=== PATIENT | female | born 2000 | race Two or more races ===

== ENCOUNTER 2022-08-09 00:41 | Inpatient (IN) ==
[2022-08-09] MEDS ORDERED: SODIUM CHLORIDE 0.9% 1000ML 1,000 ML IV STA (01:00)
[2022-08-09] MEDS ORDERED: FAMOTIDINE 20MG IV PUSH 20 MG/5 ML SYR IV STA (01:00)
[2022-08-09] MEDS ORDERED: ONDANSETRON INJ 2 MG/ML 2 ML VIAL IV STA (01:00)
--- NOTE | 2022-08-09 01:48 | Emergency Department Note ---
History of Present Illness General Chief complaint: Abdominal Pain Stated complaint: SHARP PAIN IN RT ABD AREA Time Seen by Provider: 08/09/22 00:52 History of Present Illness Maximum Pain Intensity: 7 This 21-year-old female presents to the ER complaining of right upper quadrant pain after eating tonight. Patient denies chest pain, dyspnea, fevers, vomiting, diarrhea, flulike illness. No injury to the area. No prior abdominal surgeries. Past Med/Surg History Social History Smoking Status: Current every day smoker Feels Safe at Home: Yes Review of Systems A total of 10 systems reviewed and were otherwise negative Physical Exam Vital Signs Vital Signs - 24 hr 08/09/22 00:49 08/09/22 01:15 08/09/22 00:42 Temperature 36.6 C Temperature Source Temporal Artery Scan Pulse Rate 70 Pulse Rate from SpO2 Sensor Respiratory Rate 16 Respiratory Effort / Characteristics Non-Labored Non-Labored Spontaneous Respiratory Depth Normal Normal Blood Pressure 123/92 Blood Pressure Mean 102 Pulse Oximetry 99 97 Oxygen Delivery Method Room Air Room Air Sepsis Recent Fever Within 48 Hours No Sepsis New/Unexplained Change in Mental Status No Sepsis Action Taken by Nursing No Action Required 08/09/22 01:31 08/09/22 02:50 08/09/22 01:30 Temperature Temperature Source Pulse Rate 61 70 53 L Pulse Rate from SpO2 Sensor 59 L 69 Respiratory Rate 24 16 Respiratory Effort / Characteristics Respiratory Depth Blood Pressure 102/74 Blood Pressure Mean 83 Pulse Oximetry 96 97 Oxygen Delivery Method Sepsis Recent Fever Within 48 Hours Sepsis New/Unexplained Change in Mental Status Sepsis Action Taken by Nursing VITALS: Vitals are noted on the nurse's note and reviewed by myself. Vital signs stable. GENERAL: Pleasant patient, in no acute distress, nondiaphoretic, well-developed well-nourished. SKIN: The skin was without rashes, erythema, edema, or bruising. There is no tenting of the skin. Capillary reflex less than 2 seconds. HEAD: Normocephalic atraumatic. EARS: External auditory canals clear, EYES: Pupils equal round and reactive to light and accommodation. Conjunctivae without injection, sclerae without icterus. Extraocular movements intact. NOSE: Patent, turbinates without inflammation or discharge. MOUTH: Mucous membranes moist. Pharynx without erythema or exudate. Uvula midline. Airway patent. Tongue does not deviate. NECK: Supple without nuchal rigidity. No lymphadenopathy. No thyromegaly. Cervical spine is nontender. No JVD. HEART: Regular rate and rhythm LUNGS: Clear to auscultation bilaterally without wheezes, rales or rhonchi. No retractions or accessory muscle use. ABDOMEN: Positive bowel sounds x 4. Normal tympanic percussion. Soft, tender to palpation right upper quadrant, without masses or organomegaly. No guarding or rebound tenderness. No CVA tenderness MUSCULOSKELETAL: No muscle atrophy, erythema, or edema noted. NEURO: Patient was alert and oriented to person place and time. Normal sensation to light and sharp touch. No focal neurological deficits. Course Administered Medications Discontinued Medications Sodium Chloride (Nss 1000ml) 1,000 mls @ 999 mls/hr IV .Q1H1M STA Stop: 08/09/22 02:00 Last Infusion: 08/09/22 02:33 Dose: 0 mls/hr Documented By: Admin: 08/09/22 01:34 Dose: 999 mls/hr Documented By: FRANCIS Famotidine (Pepcid 20mg Iv Push) 20 mg in 5 mls @ 2.5 mls/min IV NOW STA Stop: 08/09/22 01:01 Last Admin: 08/09/22 01:34 Dose: 2.5 mls/min Documented By: FRANCIS Piperacillin Sod/Tazobactam Sod (Zosyn) 4.5 gm in 120 mls @ 240 mls/hr IV NOW ONE Stop: 08/09/22 02:50 Last Infusion: 08/09/22 03:18 Dose: 0 mls/hr Documented By: Admin: 08/09/22 02:44 Dose: 240 mls/hr Documented By: FRANCIS Ondansetron HCl (Ondansetron Inj 2 Mg/Ml 2 Ml Vial) 4 mg IV NOW STA Stop: 08/09/22 01:01 Last Admin: 08/09/22 01:34 Dose: 4 mg Documented By: FRANCIS Medical Decision Making Medical Records Attestation: I reviewed the patient's medical records. Home Medications Current Medication List: was personally reviewed by me Laboratory Data Attestation: I reviewed the patient's lab results. 08/09/22 01:19 08/09/22 01:19 Lab Results 08/09/22 08/09/22 08/09/22 Range/Units 01:19 01: 01:19 WBC 4.90 (4.8-10.8) K/ul RBC 4.85 (4.20-5.40) M/uL Hgb 14.0 (12.0-16.0) g/dl Hct 41.0 (37.0-47.0) % MCV 84.5 (80.0-100.0) fL MCH 28.9 (25.0-34.0) pg MCHC 34.1 (32.0-36.0) g/dL RDW Std Deviation 39.9 (36.4-46.3) fL RDW Coeff of Carmen 13.0 (11.5-14.5) % Plt Count 277 (130-400) K/uL MPV 9.8 (9.4-12.4) fL Immature Gran % (Auto) 0.0 % Neut % (Auto) 50.6 % Lymph % (Auto) 37.3 % Steele % (Auto) 9.0 % Eos % (Auto) 2.9 % Baso % (Auto) 0.2 % Neut # (Auto) 2.48 (1.40-6.50) K/uL Lymph # (Auto) 1.83 (1.2-3.4) K/uL Steele # (Auto) 0.44 (0.11-0.59) K/uL Eos # (Auto) 0.14 (0-0.50) K/uL Baso # (Auto) 0.01 (0-0.2) K/uL Immature Gran # (Auto) 0.00 L (0.01-0.20) K/uL PT (9.0-12.0) Seconds INR (0.9-1.1) Sodium 141 (136-145) mmol/L Potassium 3.5 (3.5-5.1) mmol/L Chloride 103 (98-107) mmol/L Carbon Dioxide 30 (21-32) mmol/L Anion Gap 8 (3-11) BUN 12 (6-23) mg/dl Creatinine 0.82 (0.6-1.2) mg/dl Est Cr Clr Drug Dosing 98.7 ml/min Est GFR ( Amer) 118.6 ml/min Est GFR (Non-Af Amer) 102.3 ml/min BUN/Creatinine Ratio 14.6 (10-20) Glucose 103 H (70-99(Fasting)) mg/dl Calcium 9.3 (8.5-10.1) mg/dl Total Bilirubin 1.7 H (0.2-1.0) mg/dl AST 683 H (13-39) U/L ALT 397 H (7-52) U/L Alkaline Phosphatase 109 H (34-104) U/L Total Protein 7.3 (6.0-8.3) gm/dl Albumin 4.3 (3.4-5.0) gm/dl Globulin 3.0 (2.5-4.0) gm/dl Albumin/Globulin Ratio 1.4 (0.9-2) Lipase 25 (11-82) U/L HCG, Qual Negative (Negative) SARS-CoV-2, RNA, NAAT (NEGATIVE) 08/09/22 08/09/22 Range/Units 01: 03:20 WBC (4.8-10.8) K/ul RBC (4.20-5.40) M/uL Hgb (12.0-16.0) g/dl Hct (37.0-47.0) % MCV (80.0-100.0) fL MCH (25.0-34.0) pg MCHC (32.0-36.0) g/dL RDW Std Deviation (36.4-46.3) fL RDW Coeff of Carmen (11.5-14.5) % Plt Count (130-400) K/uL MPV (9.4-12.4) fL Immature Gran % (Auto) % Neut % (Auto) % Lymph % (Auto) % Steele % (Auto) % Eos % (Auto) % Baso % (Auto) % Neut # (Auto) (1.40-6.50) K/uL Lymph # (Auto) (1.2-3.4) K/uL Steele # (Auto) (0.11-0.59) K/uL Eos # (Auto) (0-0.50) K/uL Baso # (Auto) (0-0.2) K/uL Immature Gran # (Auto) (0.01-0.20) K/uL PT 11.8 (9.0-12.0) Seconds INR 1.1 (0.9-1.1) Sodium (136-145) mmol/L Potassium (3.5-5.1) mmol/L Chloride (98-107) mmol/L Carbon Dioxide (21-32) mmol/L Anion Gap (3-11) BUN (6-23) mg/dl Creatinine (0.6-1.2) mg/dl Est Cr Clr Drug Dosing ml/min Est GFR ( Amer) ml/min Est GFR (Non-Af Amer) ml/min BUN/Creatinine Ratio (10-20) Glucose (70-99(Fasting)) mg/dl Calcium (8.5-10.1) mg/dl Total Bilirubin (0.2-1.0) mg/dl AST (13-39) U/L ALT (7-52) U/L Alkaline Phosphatase (34-104) U/L Total Protein (6.0-8.3) gm/dl Albumin (3.4-5.0) gm/dl Globulin (2.5-4.0) gm/dl Albumin/Globulin Ratio (0.9-2) Lipase (11-82) U/L HCG, Qual (Negative) SARS-CoV-2, RNA, NAAT NEGATIVE (NEGATIVE) Imaging Data Attestation: I personally reviewed and interpreted this imaging study as follows: Radiologist's Impression: Gallbladder Ultrasound 08/09/22 01:00 Exam(s): US GALLBLADDER EXAM: US Abdomen Limited, Gallbladder CLINICAL HISTORY: Reason for exam: ruq pain. TECHNIQUE: Real-time ultrasound of the right upper quadrant with image documentation. COMPARISON: No relevant prior studies available. FINDINGS: Gallbladder: There is cholelithiasis. Common bile duct: The common bile duct measures 0.2 cm. No stones. No dilation. Pancreas: Unremarkable as visualized. IMPRESSION: Cholelithiasis without secondary signs of acute cholecystitis. No evidence for choledocholithiasis. Electronically signed by: Marques Webber MD 08/09/22 02:32 AM [facility] Narrative Prior records/ancillary studies reviewed. Triage Nursing notes reviewed. Additional history obtained from nursing. The patient's history was concerning for abdominal pain. Differential diagnosis: Etiologies such as appendicitis, diverticulitis, PUD, biliary pathology, UTI, pancreatitis, obstruction, mesenteric ischemia, aortic pathology, infections, inflammatory bowel disease, renal colic, as well as others were entertained. Physical examination findings: As above. ER treatment provided: An order was placed for continuous cardiac monitoring. The monitor shows a rate of 60-100 with a sinus rhythm per my Independent interpretation. IV fluids Pepcid and Zofran were ordered, Zosyn was ordered On reassessment the patient felt better. Diagnostics interpreted by me: The labs Independently Interpreted by myself revealed elevated LFTs and T. bili Imaging studies: CT scan was reviewed and independent interpreted by myself and read by radiology. CT is concerning for cholelithiasis Consultation: A consultation was placed with the hospitalist. The case was discussed and diagnostics were reviewed. The patient was evaluated in the ER for further treatment. Exam and history seem consistent with cholelithiasis with concerns for Choledocholithiasis. Patient was started on antibiotics for possible developing cholangitis. Labs and diagnostics were independent interpreted by myself. Medicine was consulted and the case was discussed. Patient will be admitted to the medical team. Patient is agreeable. By the evaluation outlined above emergent etiologies such as appendicitis, diverticulitis, PUD, UTI, pancreatiti s, obstruction, mesenteric ischemia, aortic pathology, inflammatory bowel disease, renal colic, as well as others were deemed relatively unlikely. The pt informed about the findings as listed above. All questions were answered and pleased with the treatment. The chart was completed utilizing [employer] Speech voice recognition software. Grammatical errors, random word insertions, pronoun errors, and incomplete sentences are an occassional consequence of this system due to software limita tions, ambient noise, and hardware issues. Any formal questions or concerns about the content, text, or information contained within the body of this dictation should be directly addressed to the physician oral surgery assistant for clarification. Impression & Plan Abdominal pain, acute, Cholelithiasis, Elevated LFTs Discharge Plan Visit Data Chief Complaint: Abdominal Pain Stated Complaint: SHARP PAIN IN RT ABD AREA ED Provider: Amparo Smith ED Midlevel Provider: Becca Webber Discharge Problem: Abdominal pain, acute, Cholelithiasis, Elevated LFTs Patient Disposition: Admitted As Inpatient Condition: Good Forms Stand Alone Forms: [facility] Referrals Referrals: [facility] [Primary Care Provider] -
[2022-08-09 01:59] LABS: Basophils # (auto) 0.01 K/uL (0-0.2); Basophils % (auto) 0.2 %; Eosinophils # (auto) 0.14 K/uL (0-0.50); Eosinophils % (auto) 2.9 %; Lymphocytes # (auto) 1.83 K/uL (1.2-3.4); Lymphocytes % (auto) 37.3 %; Mean Corpuscular Hemoglobin 28.9 pg (25.0-34.0); Mean Corpuscular Hgb Conc 34.1 g/dL (32.0-36.0); Mean Corpuscular Volume 84.5 fL (80.0-100.0); Mean Platelet Volume 9.8 fL (9.4-12.4); Monocytes # (auto) 0.44 K/uL (0.11-0.59); Neutrophils # (auto) 2.48 K/uL (1.40-6.50); Neutrophils % (auto) 50.6 %; Platelet Count 277 K/uL (130-400); RDW Standard Deviation 39.9 fL (36.4-46.3); Red Blood Count 4.85 M/uL (4.20-5.40)
[2022-08-09 02:16] LABS: Albumin Globulin Ratio 1.4 (0.9-2); Albumin Level 4.3 gm/dl (3.4-5.0); BUN Creatinine Ratio 14.6 (10-20); Bilirubin,Total 1.7 mg/dl (0.2-1.0); Calcium 9.3 mg/dl (8.5-10.1); Creatinine Clr Calc Pharmacy 98.7 ml/min; Est GFR (African American) 118.6 ml/min; Est GFR (Non-African American) 102.3 ml/min; Potassium 3.5 mmol/L (3.5-5.1); Pregnancy Test, Serum Negative (Negative); Total Protein 7.3 gm/dl (6.0-8.3)
[2022-08-09] MEDS ORDERED: PIPERACILLIN/TAZOBACTAM 4.5 GM/120 ML BAG IV ONE (02:21)
--- NOTE | 2022-08-09 02:33 | Ultrasound Report ---
Exam(s): US GALLBLADDER EXAM: US Abdomen Limited, Gallbladder CLINICAL HISTORY: Reason for exam: ruq pain. TECHNIQUE: Real-time ultrasound of the right upper quadrant with image documentation. COMPARISON: No relevant prior studies available. FINDINGS: Gallbladder: There is cholelithiasis. Common bile duct: The common bile duct measures 0.2 cm. No stones. No dilation. Pancreas: Unremarkable as visualized. IMPRESSION: Cholelithiasis without secondary signs of acute cholecystitis. No evidence for choledocholithiasis. Electronically signed by: Marques Webber MD 08/09/22 02:32 AM
--- NOTE | 2022-08-09 04:24 | History & Physical Report ---
Date of Service August 09, 2022 Assessment & Plan (1) RUQ pain: Plan: Patient is a 21-year-old female with no significant past medical history presents to the ED for the complaint of right upper quadrant pain. Her imaging is consistent with cholelithiasis without evidence of cholecystitis, choledocholithiasis, or cholangitis. She is hemodynamically stable. -Admit to [facility] -N.p.o. with possibility of procedure -Consult general surgery to evaluate for cholecystectomy, appreciate recommendations -Without evidence of cholangitis, no indication for antibiotics at this time -Tylenol and morphine for scaled pain -Lactated Ringer's at 100 cc/h while n.p.o. -Hepatitis panel ordered in the morning (2) Gallstones: Plan: See plan above Plan Disposition: Admit to [facility] with surgical consultation Diet: N.p.o. with lactated Ringer's for maintenance fluid DVT prophylaxis: Low risk CODE STATUS: Full code History of Present Illness Chief Complaint: RUQ Pain Primary Care Provider: [facility] Patient is a 21-year-old female with no significant past medical history presents to the ED for the complaint of right upper quadrant pain. She reports that this has been going on for the past 3 to 4 days and has progressively been getting worse to today bringing her pain up to a 7 out of 10 after eating dinner tonight. She has never had anything like this happen to her before. She is not having any nausea or vomiting however, she does note that she is having some decreased appetite. She has not had a good bowel movement in 3 to 4 days since the symptoms have started. Denies any alcohol consumption. Of note she did travel to [facility] in April. She is not a [place] born citizen so unsure of hepatitis B vaccination status. Reports that she is not sexually active. Otherwise denies shortness of breath, headache, vomiting, chest pain, or yellowing of skin. No previous abdominal surgeries. No other complaints this time. ED course:Patient was brought back and had lab work drawn which had shown elevated total bilirubin at 1.7, elevated AST, ALT, and ALT at 683, 397, and 109 respectively. She had a right upper quadrant ultrasound which did reveal gallstones without acute cholecystitis or choledocholithiasis. Common bile duct does not show any stones or dilation. Hospitalist service was then consulted for admission. Allergies Allergy/AdvReac Type Severity Reaction Status Date / Time No Known Allergies Allergy Unverified 08/09/22 04:59 Home Medications Medication Instructions Recorded Confirmed Type No Known Home Medications 08/09/22 08/09/22 History Past Med/Surg History Social History Smoking Status: Current some day smoker Second Hand Exposure: Yes; Do You Dip or Chew Tobacco: No; Tobacco Cessation Education Requested by Patient: No Hx Alcohol Use: Yes Alcohol type: hard liquor Hx Substance Use: No Preferred Language: Uzbek Communication Ability: Effective Dairy Nutrition Consultant Required: No Beliefs That Will Affect Care: None Current Living Situation: Other Current Living Situation Comment: roommate Other Information That Helps Us Care for You: No Feels Safe at Home: Yes Safety Concerns: Feels Safe At This Time Assistive Devices: Glasses Review of Systems Review of Systems: All systems reviewed & are unremarkable except as noted in HPI & below Physical Exam Constitutional: WD/WN, vitals as above Eyes: + anicteric sclerae Neck: trachea midline, no thyromegaly Respiratory: normal respiratory effort, lungs clear to auscultation Cardiovascular: RRR, no murmur, no edema Gastrointestinal (Abdomen): Inspection/Auscultation: abdomen normal to inspection and normal bowel sounds Percussion/Palpation: + abdomen tender (RUQ, negative skinner sign), abdomen soft and normal to percussion Musculoskeletal: Head/Neck/Chest: normocephalic and head atraumatic Skin: no rashes, warm and dry Neurologic: moves all extremities Psychiatric: A+Ox3, euthymic affect Results & Data Results & Data Vital Signs (Past 12 Hours) Vital Signs Temp Pulse Resp BP Pulse Ox O2 Del Method 08/09/22 01:30 53 L 08/09/22 02:50 70 16 102/74 97 08/09/22 01:31 61 24 96 08/09/22 01:15 97 Room Air 08/09/22 00:49 36.6 C 70 16 123/92 99 Room Air Supervising Physician Co-Signing Physician Notes Attending addendum: I have physically seen this patient, have supervised the medical residents activities, and agree with the H&P unless as otherwise noted. Assessment and Plan: Abnormal liver test with abdominal pain and cholelithiasis- Presumptive acute cholecystitis N.p.o. IV antibiotics IV fluids LR at 100 mils per hour General surgery consult Remaining orders and notations as noted
[2022-08-09 04:42] LABS: INR 1.1 (0.9-1.1); Prothrombin Time 11.8 Seconds (9.0-12.0)
[2022-08-09] MEDS ORDERED: Patient's ALLERGY Info needs ENTERED STA (04:51)
[2022-08-09] MEDS ORDERED: MoRPHine SULFATE 2 MG/ML CARP IV PRN (05:55)
[2022-08-09] MEDS ORDERED: ONDANSETRON INJ 2 MG/ML 2 ML VIAL IV PRN ×2 (05:55→15:55)
[2022-08-09] MEDS: LACTATED RINGER'S 1,000 ML IV SCH ×2 (06:19→19:55)
--- NOTE | 2022-08-09 07:34 | Hospitalist Progress Note ---
Date of Service August 09, 2022 Assessment & Plan (1) RUQ pain: Plan: Patient is a 21-year-old female with no significant past medical history presents to the ED for the complaint of right upper quadrant pain. - imaging is consistent with cholelithiasis without evidence of cholecystitis, choledocholithiasis, or cholangitis - -N.p.o., plan for cholecystectomy per surgery - LFTS with more of a hepatocellular patten - salicylate, acetaminophen levels wnl - liver normal on US per radiology - hepatitis panel pending - UDS pending -Tylenol and morphine for scaled pain -Lactated Ringer's at 100 cc/h while n.p.o. (2) Cholelithiasis: (3) Elevated LFTs: Plan Diet: N.p.o. with lactated Ringer's for maintenance fluid DVT prophylaxis: Low risk CODE STATUS: Full code Admission and Anticipated Discharge Date Admission Date: August 09, 2022 Supervising Physician Co-Signing Physician Notes I personally examined the patient and verified all mcghee points of history and exam, discussed case, and agree with decision making with Dr Montoya. Feeling okay postop. Sore but tolerable. Does have a little bit of radiation to her neck. Notes that she does not need anything different as far as medications. Appreciate surgical input. Vitals noted, in general she is awake and alert pleasant no distress. HEENT normocephalic atraumatic mucous membranes moist. Breathing unlabored no accessory muscle use good effort. Skin shows no rashes no pallor or icterus. Neuro without focal deficits. Labs and diagnostics reviewed Transaminitissurgical eval yielded findings consistent with cholecystitisshe is now postop. Given that she had fairly marked hepatocellular picturefurther lab work-up has been sent. Acetaminophen/salicylates reassuring, urine drug screen reassuring for anything that would be hepatotoxic. Viral hepatitis serologies are sent and pending. At the same time, as we trend her LFTs if they rapidly decline postcholecystectomy, certainly there are times where cholecystitis causes more of a hepatocellular picture on lab work. Otherwise as above. Subjective Pain improved this morning. Does note she has some nausea, denies emesis. Last bowel movement 2-3 days ago. Review of Systems Review of Systems: As per above Physical Exam Physical Exam: Constitutional: well-appearing, no acute distress HEENT: NCAT, no conjunctival injection CV: regular rhythm, no murmur appreciated, extremities well-perfused, no LE edema Resp: CTABL, no wheezes/rales/rhonchi appreciated, no increased work of breathing GI: soft, nondistended, nontender, BS normoactive MSK: no gross deformities appreciated Skin: warm, dry, no rash appreciated Neuro: alert, oriented, no focal neurologic deficit appreciated Results & Data Results & Data Vital Signs (Past 12 Hours) Vital Signs Temp Pulse Pulse Resp BP BP Pulse Ox 08/09/22 06:47 36.9 C 61 16 114/79 98 08/09/22 05:58 37.1 C 65 16 100 08/09/22 05:27 72 08/09/22 01:30 53 L 08/09/22 02:50 70 16 102/74 97 08/09/22 01:31 61 24 96 08/09/22 01:15 97 08/09/22 00:49 36.6 C 70 16 123/92 99 O2 Del Method 08/09/22 06:47 Room Air 08/09/22 05:58 Room Air 08/09/22 05:27 08/09/22 01:30 08/09/22 02:50 08/09/22 01:31 08/09/22 01:15 Room Air 08/09/22 00:49 Room Air Resident Activity Tracking Resident Involvement: Resident Care Provided Care Provided: Adult Hospital Medicine (2) Cholelithiasis Cholelithiasis location: other site
--- NOTE | 2022-08-09 09:02 | Surgery Consultation ---
Date of Consultation August 09, 2022 Assessment & Plan (1) Abdominal pain, acute: pt is a 21 year-old female who was admitted to hospital for RUQ pain and cholelithiasis, IMP: acute cholecystitis, cholelithiasis, plan, base on pt's H/P, labs and U/S study finding, I recommend to do laparoscopic cholecystectomy, possible open or cholangiogram, D/W benefits, risks and alternatives of the surgery, the risks- infection, bleeding, injury other organs, bile leak, incisional hernia, may need ERCP if T bilirubin go up post-op, pt understood, she agreed with surgery, she signed informed consent, I answered all questions, pre-op iv antibiotic, (2) Cholelithiasis: see above History of Present Illness Reason for Consultation: cholelithiasis Requesting Physician: Evert Gonzalez DO Attending Physician: Evert Gonzalez DO History of Present Illness Chief Complaint: RUQ Pain Primary Care Provider: [facility] Patient is a 21-year-old female with no significant past medical history presents to the ED for the complaint of right upper quadrant pain. She reports that this has been going on for the past 3 to 4 days and has progressively been getting worse to today bringing her pain up to a 7 out of 10 after eating dinner tonight. She has never had anything like this happen to her before. She is not having any nausea or vomiting however, she does note that she is having some decreased appetite. She has not had a good bowel movement in 3 to 4 days since the symptoms have started. Denies any alcohol consumption. Of note she did travel to [facility] in April. She is not a [place] born citizen so unsure of hepatitis B vaccination status. Reports that she is not sexually active. Otherwise denies shortness of breath, headache, vomiting, chest pain, or yellowing of skin. No previous abdominal surgeries. No other complaints this time. ED course:Patient was brought back and had lab work drawn which had shown elevated total bilirubin at 1.7, elevated AST, ALT, and ALT at 683, 397, and 109 respectively. She had a right upper quadrant ultrasound which did reveal gallstones without acute cholecystitis or choledocholithiasis. Common bile duct does not show any stones or dilation. Hospitalist service was then consulted for admission. I ( Clementina Fernandez MD ) got a call for consult cholelithiasis with RUQ pain, I reviewed pt's H/P, lbs and U/S study with pt. Past Med/Surg History Social History Smoking Status: Current every day smoker Feels Safe at Home: Yes Review of Systems Review of Systems: All systems reviewed & are unremarkable except as noted in HPI & below Allergies Allergy/AdvReac Type Severity Reaction Status Date / Time No Known Allergies Allergy Unverified 08/09/22 04:59 Home Medications Medication Instructions Recorded Confirmed Type No Known Home Medications 08/09/22 08/09/22 History Patient History Social History Smoking Status: Current some day smoker Second Hand Exposure: Yes; Do You Dip or Chew Tobacco: No; Tobacco Cessation Education Requested by Patient: No Hx Alcohol Use: Yes Alcohol type: hard liquor Hx Substance Use: No Preferred Language: Senegalese Communication Ability: Effective [employer] Required: No Beliefs That Will Affect Care: None Current Living Situation: Other Current Living Situation Comment: roommate Other Information That Helps Us Care for You: No Feels Safe at Home: Yes Safety Concerns: Feels Safe At This Time Assistive Devices: Glasses Physical Exam Constitutional: WD/WN, vitals as above Eyes: PERRL, conjunctivae normal, anicteric sclerae Neck: trachea midline, no thyromegaly Respiratory: normal respiratory effort, lungs clear to auscultation Cardiovascular: RRR, no murmur, no edema Gastrointestinal (Abdomen): normal bowel sounds, soft, nontender, no hepatosplenomegaly soft, mild tenderness at RUQ, no rebound pain, no distend, BS + Musculoskeletal: no cyanosis or clubbing, extremities motor strength 5/5 Neurologic: patellar DTR's 2+ bilat, sensation intact Psychiatric: A+Ox3, euthymic affect Results & Data Vital Signs (Past 12 Hours) Vital Signs Temp Pulse Pulse Resp BP BP Pulse Ox 08/09/22 06:47 36.9 C 61 16 114/79 98 08/09/22 05:58 37.1 C 65 16 100 08/09/22 05:27 72 08/09/22 01:30 53 L 08/09/22 02:50 70 16 102/74 97 08/09/22 01:31 61 24 96 08/09/22 01:15 97 08/09/22 00:49 36.6 C 70 16 123/92 99 O2 Del Method 08/09/22 06:47 Room Air 08/09/22 05:58 Room Air 08/09/22 05:27 08/09/22 01:30 08/09/22 02:50 08/09/22 01:31 08/09/22 01:15 Room Air 08/09/22 00:49 Room Air Laboratory Results Abnormal lab results 08/09/22 08/09/22 Range/Units 01:19 01:19 Immature Gran # (Auto) 0.00 L (0.01-0.20) K/uL Glucose 103 H (70-99(Fasting)) mg/dl Total Bilirubin 1.7 H (0.2-1.0) mg/dl AST 683 H (13-39) U/L ALT 397 H (7-52) U/L Alkaline Phosphatase 109 H (34-104) U/L Diagnostic Findings Exam(s): US GALLBLADDER EXAM: US Abdomen Limited, Gallbladder CLINICAL HISTORY: Reason for exam: ruq pain. TECHNIQUE: Real-time ultrasound of the right upper quadrant with image documentation. COMPARISON: No relevant prior studies available. FINDINGS: Gallbladder: There is cholelithiasis. Common bile duct: The common bile duct measures 0.2 cm. No stones. No dilation. Pancreas: Unremarkable as visualized. IMPRESSION: Cholelithiasis without secondary signs of acute cholecystitis. No evidence for choledocholithiasis. (2) Cholelithiasis Cholelithiasis location: other site
[2022-08-09] MEDS ORDERED: ceFAZolin 2000MG 2,000 MG/15 ML SYR IV ONE (09:13)
--- NOTE | 2022-08-09 09:13 | History & Physical Bridge Note ---
Date of Service August 09, 2022 History & Physical Bridge Note I have examined the patient, reviewed the History & Physical and in the interval since the performance of the History & Physical I have noted the following changes of clinical significance: no changes noted
[2022-08-09 09:41] LABS: Albumin Globulin Ratio 1.5 (0.9-2); Albumin Level 3.8 gm/dl (3.4-5.0); BUN Creatinine Ratio 13.4 (10-20); Bilirubin Direct 1.1 mg/dl (0-0.2); Bilirubin,Total 1.9 mg/dl (0.2-1.0); Calcium 8.5 mg/dl (8.5-10.1); Creatinine Clr Calc Pharmacy 120.6 ml/min; Est GFR (African American) 145.6 ml/min; Est GFR (Non-African American) 125.7 ml/min; Globulin 2.6 gm/dl (2.5-4.0); Potassium 4.2 mmol/L (3.5-5.1); Total Protein 6.4 gm/dl (6.0-8.3)
[2022-08-09 09:42] LABS: Acetaminophen < 3 ug/ml (10-30); Salicylate < 3.0 mg/dl (3.0-30)
[2022-08-09] MEDS ORDERED: BACITRACIN OINT 15 GM TUBE ONE (09:53)
[2022-08-09] MEDS ORDERED: LIDOCAINE 1% LOCAL 20 ML VIAL ONE (09:53)
[2022-08-09] MEDS ORDERED: BUPIVACAINE 0.5 % 5 MG/1 ML MPF 30ML VIAL ONE (09:53)
[2022-08-09 10:00] LABS: INR 1.1 (0.9-1.1); Prothrombin Time 11.8 Seconds (9.0-12.0)
[2022-08-09 12:18] LABS: Appearance Urine Clear (Clear); Bacteria Urine Automated 1+ (Negative); Bilirubin Urine Negative (Negative); Blood Urine Negative (Negative); Color Urine Dark Yellow; Epithelial Cell Urine Auto >30 /lpf (0-5); Glucose Urine UA Negative (Negative); Ketones Urine Trace (Negative); Leukocyte Esterase Urine Trace (Negative); Nitrite Urine Negative (Negative); Protein Urine Negative (Negative); RBC Urine Automated 0-4 /hpf (0-4); Specific Gravity Urine 1.007 (1.000-1.030); Urobilinogen Urine Negative (Negative); pH Urine 7.5 (4.5-7.5)
[2022-08-09 12:48] LABS: Amphetamines+Metham, Urine Neg (Neg); Barbiturates, Urine Neg (Neg); Benzodiazepine, Urine Neg (Neg); Cocaine, Urine Neg (Neg); MDMA (Ecstacy), Urine Neg (Neg); Methadone, Urine Neg (Neg); Opiate, Urine Neg (Neg); Phencyclidine, Urine Neg (Neg)
--- NOTE | 2022-08-09 12:55 | Anesthesiology Consultation ---
Date of Service August 09, 2022 Assessment & Plan Chart Review Chart Review: Acceptable Risk for Surgery and Patient NOT seen in Pre Admission Testing Consults Requested none ASA [id number] Proposed Anesthesia Anesthesia Type: General History Surgery Operation Date: 08/09/22 13:00 Proposed Procedures p Laparoscopic Cholecystectomy - Clementina Fernandez MD Height/Weight Height: 5 ft 0.24 in Weight: 74.7 kg Allergies Allergy/AdvReac Type Severity Reaction Status Date / Time No Known Allergies Allergy Unverified 08/09/22 04:59 Medications Home Medications Medication Instructions Recorded Confirmed Last Taken No Known Home Medications 08/09/22 08/09/22 Unknown Active Medications Generic Name Dose Route Start Last Admin Trade Name Freq PRN Reason Stop Dose Admin Lactated Ringer's 1,000 mls @ 100 mls/hr 08/09/22 04:45 08/09/22 06:19 Lr IV 08/10/22 00:44 100 mls/hr .Q10H YARELIS Administration Past Medical History + tobacco smoker; + marijuana obese Exercise / Class Metabolic Activity II 4-5 Yardwork/Stairs/Walk up hill Past Anesthesia History No Hx of Anesthesia Complications and No Family Hx of Anesthesia Complications History of PONV No Hx of PONV and No Hx of Motion Sickness Social History Smoking Status: Current some day smoker tobacco type: cigarettes Do You Dip or Chew Tobacco: No Hx Alcohol Use: Yes Alcohol type: hard liquor alcohol intake frequency: a few times a week Hx Substance Use: No Physical Exam Vital Signs Last Vital Signs Temp 36.9 C 08/09/22 06:47 Pulse 61 08/09/22 06:47 Resp 16 08/09/22 06:47 BP 114/79 08/09/22 06:47 Pulse Ox 98 08/09/22 06:47 O2 Del Method Room Air 08/09/22 06:47 Testing Laboratory Results 08/09/22 01:19 08/09/22 08:52 PT 11.8 Seconds (9.0-12.0) 08/09/22 09:05 INR 1.1 (0.9-1.1) 08/09/22 09:05 Urine Color Dark Yellow 08/09/22 Unknown Urine Appearance Clear (Clear) 08/09/22 Unknown Urine pH 7.5 (4.5-7.5) 08/09/22 Unknown Ur Specific [place] 1.007 (1.000-1.030) 08/09/22 Unknown Urine Protein Negative (Negative) 08/09/22 Unknown Urine Glucose (UA) Negative (Negative) 08/09/22 Unknown Urine Ketones Trace (Negative) H 08/09/22 Unknown Urine Nitrite Negative (Negative) 08/09/22 Unknown Ur Leukocyte Esterase Trace (Negative) H 08/09/22 Unknown Urine WBC (Auto) 1-5 /hpf (0-5) 08/09/22 Unknown Urine RBC (Auto) 0-4 /hpf (0-4) 08/09/22 Unknown U Hyaline Cast (Auto) 1-5 /lpf (0-5) 08/09/22 Unknown U Epithel Cells (Auto) >30 /lpf (0-5) H 08/09/22 Unknown Urine Bacteria (Auto) 1+ (Negative) H 08/09/22 Unknown
[2022-08-09] MEDS ORDERED: SUCCINYLCHOLINE CHLORIDE 20 MG/ML 10 ML VIAL IV ONE (13:49)
[2022-08-09] MEDS ORDERED: PROPOFOL IV EMULSION 10 MG/ML 20 ML VIAL IV ONE (13:49)
[2022-08-09] MEDS ORDERED: fentaNYL citrate PF 100 MCG/2 ML VIAL ONE ×4 (13:50→15:58)
[2022-08-09] MEDS ORDERED: MIDAZOLAM HCL 1 MG/ML 2ML VIAL ONE (13:50)
[2022-08-09] MEDS ORDERED: CISATRACURIUM BESYLATE IV SOLN 2 MG/ML 10 ML VIAL IV ONE (14:28)
[2022-08-09] MEDS ORDERED: ceFAZolin 330 MG/ML 1 GM VIAL ONE (14:28)
[2022-08-09] MEDS ORDERED: NEOSTIGMINE METHYLSULFATE 1 MG/ML 10ML VIAL ONE (15:26)
[2022-08-09] MEDS ORDERED: GLYCOPYRROLATE 0.2 MG/ML VIAL ONE (15:26)
--- NOTE | 2022-08-09 15:42 | Post Operative Brief Note ---
Immediate Post Op Note v1 Date of Surgery August 09, 2022 Pre & Post Diagnosis Operation Date: 08/09/22 13:00 Pre-Op Diagnosis: cholecystitis, cholelithiasis Post-Op Diagnosis: cholecystitis, cholelithiasis I identified the patient and participated in the time-out.: Yes Procedure Operation Date: 08/09/22 13:00 Actual Procedures p Laparoscopic Cholecystectomy(Not Applicable) - Clementina Fernandez MD Surgeon Clementina Fernandez MD Health Psychologist neurosurgical physician assistant Estimated Blood Loss 10 Findings Consistent with Post-Op Diagnosis Fluids 1100ml Specimens gallbladder Anesthesia Type General Complications none Disposition Accompanied Patient To Recovery: Yes
[2022-08-09] MEDS ORDERED: NALOXONE HCL 0.4 MG/1 ML VIAL/CARP IV PRN (15:55)
[2022-08-09] MEDS ORDERED: PROMETHAZINE HCL 12.5 MG in SODIUM CHLORIDE 0.9% 50 ML IV PRN (15:55)
[2022-08-09] MEDS ORDERED: LABETALOL HCL IV 5 MG/ML 20ML IV PRN (15:55)
[2022-08-09] MEDS ORDERED: FLUMAZENIL 0.1 MG/1 ML 10 ML VIAL IV PRN (15:55)
[2022-08-09] MEDS ORDERED: ePHEDrine sulfate 50 MG/ML AMP IV PRN (15:55)
[2022-08-09] MEDS ORDERED: ATROPINE SULFATE 0.1 MG/ML 10ML SYR IV PRN (15:55)
[2022-08-09] MEDS: fentaNYL citrate PF 100 MCG/2 ML VIAL IV PRN ×3 (15:59→16:09)
--- NOTE | 2022-08-09 16:19 | Anesthesiology Progress Note ---
Date of Service August 09, 2022 Anesthesia Post Procedure Vital Signs Vital Signs: Temp Pulse Pulse Pulse Resp BP BP 08/09/22 16:10 80 20 132/86 08/09/22 16:00 78 20 121/88 08/09/22 15:50 36.6 C 84 21 125/87 08/09/22 06:47 36.9 C 61 16 114/79 08/09/22 05:58 37.1 C 65 16 08/09/22 05:27 72 08/09/22 01:30 53 L 08/09/22 02:50 70 16 102/74 08/09/22 01:31 61 24 08/09/22 01:15 08/09/22 00:49 36.6 C 70 16 123/92 Pulse Ox O2 Del Method O2 Flow Rate 08/09/22 16:10 97 Room Air 08/09/22 16:00 100 Oxymask 8 08/09/22 15:50 100 Oxymask 8 08/09/22 06:47 98 Room Air 08/09/22 05:58 100 Room Air 08/09/22 05:27 08/09/22 01:30 08/09/22 02:50 97 08/09/22 01:31 96 08/09/22 01:15 97 Room Air 08/09/22 00:49 99 Room Air Pain Intensity Right Abdomen: Pain Intensity: 1 Abdomen: Pain Intensity: 5 Transfer of Care Handoff Completed per policy Notes Mental Status: alert / awake / arousable Patient Amnestic to Procedure: Yes Nausea / Vomiting: adequately controlled Pain: adequately controlled Airway Patency, RR, SpO2: stable & adequate BP & HR: stable & adequate Hydration State: stable & adequate Anesthetic Complications: no major complications apparent
[2022-08-09] MEDS ORDERED: oxyCODONE/ACETAMINOPHEN 5mg/325mg TAB PO PRN (16:34)
--- NOTE | 2022-08-09 17:02 | Operative Report (OR) ---
DATE OF PROCEDURE: 08/09/2022. PREOPERATIVE DIAGNOSIS: Acute cholecystitis with cholelithiasis. POSTOPERATIVE DIAGNOSES: Acute cholecystitis and cholelithiasis. OPERATION: Laparoscopic cholecystectomy. SURGEON: Clementina Fernandez MD. ANESTHESIA: General. ESTIMATED BLOOD LOSS: About 10 mL FINDINGS: Acute cholecystitis with cholelithiasis. COMPLICATIONS: None. INDICATIONS FOR THE PROCEDURE: This is a 21-year-old female who presented to the ED with acute right upper quadrant pain. The patient had ultrasound diagnosis of cholelithiasis and I recommended to do laparoscopic cholecystectomy, possible open, possible cholangiogram. I did talk to the patient abou t the benefit, risk, alternate procedure. I indicated the risks may include, but not limited to, suc h as bleeding, infection, injury to other organs, incisional hernia, bile leak, may need ERCP. The p atient understands. She signed informed consent and I answered all questions. DETAILS OF PROCEDURE: I identified the patient and verified the procedure, we brought the patient to the OR, put the patient in the supine position on the OR table. The patient received SCD on bilater al legs to prevent DVT. Also, patient received 2 grams Ancef IV for prophylactic antibiotic. The pa tient received general anesthesia without difficulty. The abdomen was prepped and draped in routine sterile fashion. After timeout, I injected the local anesthesia by using 1% lidocaine mixed with 0.5 % Marcaine just above the umbilicus, then I made a small incision just above umbilicus, opened fascia , opened peritoneum. Under direct vision, put a Vania trocar in, connected to CO2 to create pneumop eritoneum, flow rate at 6 liters per minute, pressure not more than 14 mmHg. Once we got a nice pneumoperitoneum, we put a camera in, looked around the abdomen. Normal finding o n the liver; however, the gallbladder shows significant distention with gallbladder wall thickening, edema, confirmed diagnosis of acute cholecystitis. Once we confirmed the diagnosis, we put another t wo 5 mm trocars in the right upper quadrant, one is an 11 trocar in the epigastric area. Once all tr ocars in, we used the grasper to hold the base of gallbladder, put in the direction to the diaphragm, another grasper to hold the pouch of gallbladder, put a lateral to explore the triangle of Calot. T he cystic duct was identified and mobilized. Then, I put two 10 mm metal clips on the proximal cysti c duct, one on the distal cystic duct, then used a scissor for transection of cystic duct; rechecked, no bile leak. The cystic artery was identified and mobilized. I put two 10 mm metal clips on the p roximal cystic artery, one on the distal cystic artery, then used a scissor for transection of cystic artery; rechecked, no active bleeding. Then, we used the Bovie to take down the gallbladder from li mike bed, rechecked, no active bleeding, no bile leak from liver bed. Then, we removed the gallbladde r through the catch bag. Then, we reinserted the Vania trocar in, connected to CO2 to create pneumo peritoneum, again looked around the abdomen, no active bleeding, no bile leak from liver bed. Then, we removed all trocars under direct vision. No active bleeding from the trocar site. Pneumoperitone um was released, then I closed the umbilical incision fascial layer by using 0 Vicryl [id number] x2, closed subcutaneous layer by using 2-0 Vicryl interruptedly, closed skin by using 4-0 Vicryl con tinuous running, closed the epigastric incision fascial layer by using 0 Vicryl [id number] x2, c losed subcutaneous layer by using 2-0 Vicryl interruptedly, closed skin by using 4-0 Vicryl interrupt edly, closed another two 5 mm trocar site of skin only by using 4-0 Vicryl. Then, we put the dressin g on. The patient tolerated the procedure well. All instrument, needle and sponge counts were corre ct x2 at the end of the case. The patient was transferred to recovery room in stable condition. The specimen was sent to pathology. After the procedure, I did talk to the patient about the OR finding and procedure we did, the patient understands. Job ID: [id number]
[2022-08-09] MEDS: ceFAZolin 1000MG 1,000 MG/7.5 ML SYR IV SCH (18:36)
--- NOTE | 2022-08-09 19:20 | Billing Data ---
Date of Service August 09, 2022 Coding Level of Care Code 31694 INT INP/OBS CARE
[2022-08-09] MEDS: ACETAMINOPHEN 1,000 MG/100 ML VIAL IV PRN (19:54)
[2022-08-10] MEDS: ceFAZolin 1000MG 1,000 MG/7.5 ML SYR IV SCH ×2 (01:11→09:04)
[2022-08-10 06:47] LABS: Basophils # (auto) 0.01 K/uL (0-0.2); Basophils % (auto) 0.2 %; Hematocrit (blood only) 36.1 % (37.0-47.0); Hemoglobin 12.1 g/dl (12.0-16.0); Immature Granulocytes # (auto) 0.01 K/uL (0.01-0.20); Immature Granulocytes % (auto) 0.2 %; Lymphocytes % (auto) 23.6 %; Mean Corpuscular Hemoglobin 28.9 pg (25.0-34.0); Mean Corpuscular Hgb Conc 33.5 g/dL (32.0-36.0); Mean Corpuscular Volume 86.4 fL (80.0-100.0); Mean Platelet Volume 10.2 fL (9.4-12.4); Monocytes # (auto) 0.38 K/uL (0.11-0.59); Monocytes % (auto) 6.9 %; Neutrophils % (auto) 69.1 %; Platelet Count 253 K/uL (130-400); RDW Standard Deviation 40.6 fL (36.4-46.3); Red Blood Count 4.18 M/uL (4.20-5.40)
[2022-08-10 06:51] LABS: Albumin Globulin Ratio 1.4 (0.9-2); Albumin Level 3.4 gm/dl (3.4-5.0); BUN Creatinine Ratio 6.3 (10-20); Bilirubin,Total 0.6 mg/dl (0.2-1.0); Calcium 8.7 mg/dl (8.5-10.1); Creatinine Clr Calc Pharmacy 126.2 ml/min; Est GFR (African American) 147.8 ml/min; Est GFR (Non-African American) 127.6 ml/min; Globulin 2.5 gm/dl (2.5-4.0); Potassium 4.2 mmol/L (3.5-5.1); Total Protein 5.9 gm/dl (6.0-8.3)
--- NOTE | 2022-08-10 06:56 | Hospitalist Progress Note ---
Date of Service August 10, 2022 Assessment & Plan (1) RUQ pain: Plan: Ms. Lopez is a 21 y/o female with no significant PMHx presented to the ED with RUQ pain found to have cholelithiasis now POD1 after cholecystectomy. #Cholelithiasis Imaging is consistent with cholelithiasis without evidence of cholecystitis, choledocholithiasis, or cholangitis. LFTs hepatocellular pattern. Liver US normal. Transaminitis improving. UDS +marijuana, salicylate, acetaminophen levels WNL. POD1 cholescytectomy. Pain well controlled. [] POD1 cholecystectomy [] Tylenol and morphine for scaled pain [] Hepatitis panel pending Diet: Regular DVT prophylaxis: Low risk CODE STATUS: Full code (2) Cholelithiasis: (3) Elevated LFTs: Admission and Anticipated Discharge Date Admission Date: August 09, 2022 Subjective Patient significantly improved. Minimal pain. No n/v/f/c/SOB/CP. Review of Systems Review of Systems: As per above Physical Exam Physical Exam: Constitutional: well-appearing, no acute distress HEENT: NCAT, no conjunctival injection CV: regular rhythm, no murmur appreciated, extremities well-perfused, no LE edema Resp: CTABL, no wheezes/rales/rhonchi appreciated, no increased work of breathing GI: soft, nondistended, +tender over incisions, wounds dressed with minimal serosanguinous strike through, no erythema or purulent discharge MSK: no gross deformities appreciated Skin: warm, dry, no rash appreciated Neuro: alert, oriented, no focal neurologic deficit appreciated Results & Data Results & Data Vital Signs (Past 12 Hours) Vital Signs Temp Pulse Resp BP Pulse Ox O2 Del Method 08/10/22 03:57 37.1 C 78 15 106/77 95 Room Air 08/09/22 22:37 37.2 C 61 16 117/81 97 Room Air 08/09/22 19:34 36.8 C 71 16 112/76 96 Room Air Laboratory Results 08/10/22 08/10/22 08/09/22 Range/Units 05:48 05:48 Unknown WBC 5.50 (4.8-10.8) K/ul RBC 4.18 L (4.20-5.40) M/uL Hgb 12.1 (12.0-16.0) g/dl Hct 36.1 L (37.0-47.0) % MCV 86.4 (80.0-100.0) fL MCH 28.9 (25.0-34.0) pg MCHC 33.5 (32.0-36.0) g/dL RDW Std Deviation 40.6 (36.4-46.3) fL RDW Coeff of Carmen 13.0 (11.5-14.5) % Plt Count 253 (130-400) K/uL MPV 10.2 (9.4-12.4) fL Immature Gran % (Auto) 0.2 % Neut % (Auto) 69.1 % Lymph % (Auto) 23.6 % Floyd % (Auto) 6.9 % Eos % (Auto) 0.0 % Baso % (Auto) 0.2 % Neut # (Auto) 3.80 (1.40-6.50) K/uL Lymph # (Auto) 1.30 (1.2-3.4) K/uL Floyd # (Auto) 0.38 (0.11-0.59) K/uL Eos # (Auto) 0.00 (0-0.50) K/uL Baso # (Auto) 0.01 (0-0.2) K/uL Immature Gran # (Auto) 0.01 (0.01-0.20) K/uL PT (9.0-12.0) Seconds INR (0.9-1.1) Sodium 139 (136-145) mmol/L Potassium 4.2 (3.5-5.1) mmol/L Chloride 108 H (98-107) mmol/L Carbon Dioxide 27 (21-32) mmol/L Anion Gap 4 (3-11) BUN 4 L (6-23) mg/dl Creatinine 0.64 (0.6-1.2) mg/dl Est Cr Clr Drug Dosing 126.2 ml/min Est GFR ( Amer) 147.8 ml/min Est GFR (Non-Af Amer) 127.6 ml/min BUN/Creatinine Ratio 6.3 L (10-20) Glucose 108 H (70-99(Fasting)) mg/dl Calcium 8.7 (8.5-10.1) mg/dl Total Bilirubin 0.6 D (0.2-1.0) mg/dl Direct Bilirubin (0-0.2) mg/dl AST 103 H (13-39) U/L ALT 210 H (7-52) U/L Alkaline Phosphatase 83 (34-104) U/L Total Protein 5.9 L (6.0-8.3) gm/dl Albumin 3.4 (3.4-5.0) gm/dl Globulin 2.5 (2.5-4.0) gm/dl Albumin/Globulin Ratio 1.4 (0.9-2) Urine Color Urine Appearance (Clear) Urine pH (4.5-7.5) Ur Specific [place] (1.000-1.030) Urine Protein (Negative) Urine Glucose (UA) (Negative) Urine Ketones (Negative) Urine Blood (Negative) Urine Nitrite (Negative) Urine Bilirubin (Negative) Urine Urobilinogen (Negative) Ur Leukocyte Esterase (Negative) Urine WBC (Auto) (0-5) /hpf Urine RBC (Auto) (0-4) /hpf U Hyaline Cast (Auto) (0-5) /lpf U Epithel Cells (Auto) (0-5) /lpf Urine Bacteria (Auto) (Negative) Salicylates (3.0-30) mg/dl Urine Opiates Screen (Neg) Ur Methadone, Qual (Neg) Acetaminophen (10-30) ug/ml Urine Barbiturates (Neg) Ur Phencyclidine (PCP) (Neg) U Amphetamin/Meth Scrn (Neg) MDMA (Ecstasy) Screen (Neg) U Benzodiazepines Scrn (Neg) Ur Cocaine Metabolite (Neg) U Marijuana (THC) Screen (Neg) U Marijuana THC Carboxy Pending Drug Screen Comment Pending 08/09/22 08/09/22 08/09/22 Range/Units Unknown Unknown 09:05 WBC (4.8-10.8) K/ul RBC (4.20-5.40) M/uL Hgb (12.0-16.0) g/dl Hct (37.0-47.0) % MCV (80.0-100.0) fL MCH (25.0-34.0) pg MCHC (32.0-36.0) g/dL RDW Std Deviation (36.4-46.3) fL RDW Coeff of Carmen (11.5-14.5) % Plt Count (130-400) K/uL MPV (9.4-12.4) fL Immature Gran % (Auto) % Neut % (Auto) % Lymph % (Auto) % Floyd % (Auto) % Eos % (Auto) % Baso % (Auto) % Neut # (Auto) (1.40-6.50) K/uL Lymph # (Auto) (1.2-3.4) K/uL [place] # (Auto) (0.11-0.59) K/uL Eos # (Auto) (0-0.50) K/uL Baso # (Auto) (0-0.2) K/uL Immature Gran # (Auto) (0.01-0.20) K/uL PT 11.8 (9.0-12.0) Seconds INR 1.1 (0.9-1.1) Sodium (136-145) mmol/L Potassium (3.5-5.1) mmol/L Chloride (98-107) mmol/L Carbon Dioxide (21-32) mmol/L Anion Gap (3-11) BUN (6-23) mg/dl Creatinine (0.6-1.2) mg/dl Est Cr Clr Drug Dosing ml/min Est GFR ( Amer) ml/min Est GFR (Non-Af Amer) ml/min BUN/Creatinine Ratio (10-20) Glucose (70-99(Fasting)) mg/dl Calcium (8.5-10.1) mg/dl Total Bilirubin (0.2-1.0) mg/dl Direct Bilirubin (0-0.2) mg/dl AST (13-39) U/L ALT (7-52) U/L Alkaline Phosphatase (34-104) U/L Total Protein (6.0-8.3) gm/dl Albumin (3.4-5.0) gm/dl Globulin (2.5-4.0) gm/dl Albumin/Globulin Ratio (0.9-2) Urine Color Dark Yellow Urine Appearance Clear (Clear) Urine pH 7.5 (4.5-7.5) Ur Specific [place] 1.007 (1.000-1.030) Urine Protein Negative (Negative) Urine Glucose (UA) Negative (Negative) Urine Ketones Trace H (Negative) Urine Blood Negative (Negative) Urine Nitrite Negative (Negative) Urine Bilirubin Negative (Negative) Urine Urobilinogen Negative (Negative) Ur Leukocyte Esterase Trace H (Negative) Urine WBC (Auto) 1-5 (0-5) /hpf Urine RBC (Auto) 0-4 (0-4) /hpf U Hyaline Cast (Auto) 1-5 (0-5) /lpf U Epithel Cells (Auto) >30 H (0-5) /lpf Urine Bacteria (Auto) 1+ H (Negative) Salicylates (3.0-30) mg/dl Urine Opiates Screen Neg (Neg) Ur Methadone, Qual Neg (Neg) Acetaminophen (10-30) ug/ml Urine Barbiturates Neg (Neg) Ur Phencyclidine (PCP) Neg (Neg) U Amphetamin/Meth Scrn Neg (Neg) MDMA (Ecstasy) Screen Neg (Neg) U Benzodiazepines Scrn Neg (Neg) Ur Cocaine Metabolite Neg (Neg) U Marijuana (THC) Screen Pos H (Neg) U Marijuana THC Carboxy Drug Screen Comment 08/09/22 08/09/22 Range/Units 08:52 08:52 WBC (4.8-10.8) K/ul RBC (4.20-5.40) M/uL Hgb (12.0-16.0) g/dl Hct (37.0-47.0) % MCV (80.0-100.0) fL MCH (25.0-34.0) pg MCHC (32.0-36.0) g/dL RDW Std Deviation (36.4-46.3) fL RDW Coeff of Carmen (11.5-14.5) % Plt Count (130-400) K/uL MPV (9.4-12.4) fL Immature Gran % (Auto) % Neut % (Auto) % Lymph % (Auto) % [place] % (Auto) % Eos % (Auto) % Baso % (Auto) % Neut # (Auto) (1.40-6.50) K/uL Lymph # (Auto) (1.2-3.4) K/uL [place] # (Auto) (0.11-0.59) K/uL Eos # (Auto) (0-0.50) K/uL Baso # (Auto) (0-0.2) K/uL Immature Gran # (Auto) (0.01-0.20) K/uL PT (9.0-12.0) Seconds INR (0.9-1.1) Sodium 139 (136-145) mmol/L Potassium 4.2 (3.5-5.1) mmol/L Chloride 107 (98-107) mmol/L Carbon Dioxide 28 (21-32) mmol/L Anion Gap 4 (3-11) BUN 9 (6-23) mg/dl Creatinine 0.67 (0.6-1.2) mg/dl Est Cr Clr Drug Dosing 120.6 ml/min Est GFR ( Amer) 145.6 ml/min Est GFR (Non-Af Amer) 125.7 ml/min BUN/Creatinine Ratio 13.4 (10-20) Glucose 89 (70-99(Fasting)) mg/dl Calcium 8.5 (8.5-10.1) mg/dl Total Bilirubin 1.9 H (0.2-1.0) mg/dl Direct Bilirubin 1.1 H (0-0.2) mg/dl AST 401 H (13-39) U/L ALT 364 H (7-52) U/L Alkaline Phosphatase 98 (34-104) U/L Total Protein 6.4 (6.0-8.3) gm/dl Albumin 3.8 (3.4-5.0) gm/dl Globulin 2.6 (2.5-4.0) gm/dl Albumin/Globulin Ratio 1.5 (0.9-2) Urine Color Urine Appearance (Clear) Urine pH (4.5-7.5) Ur Specific [place] (1.000-1.030) Urine Protein (Negative) Urine Glucose (UA) (Negative) Urine Ketones (Negative) Urine Blood (Negative) Urine Nitrite (Negative) Urine Bilirubin (Negative) Urine Urobilinogen (Negative) Ur Leukocyte Esterase (Negative) Urine WBC (Auto) (0-5) /hpf Urine RBC (Auto) (0-4) /hpf U Hyaline Cast (Auto) (0-5) /lpf U Epithel Cells (Auto) (0-5) /lpf Urine Bacteria (Auto) (Negative) Salicylates < 3.0 L (3.0-30) mg/dl Urine Opiates Screen (Neg) Ur Methadone, Qual (Neg) Acetaminophen < 3 L (10-30) ug/ml Urine Barbiturates (Neg) Ur Phencyclidine (PCP) (Neg) U Amphetamin/Meth Scrn (Neg) MDMA (Ecstasy) Screen (Neg) U Benzodiazepines Scrn (Neg) Ur Cocaine Metabolite (Neg) U Marijuana (THC) Screen (Neg) U Marijuana THC Carboxy Drug Screen Comment (2) Cholelithiasis Cholelithiasis location: other site
[2022-08-10] MEDS: ACETAMINOPHEN 1,000 MG/100 ML VIAL IV PRN (07:17)
[2022-08-10] MEDS ORDERED: ACETAMINOPHEN 325 MG TAB PO PRN (11:25)
--- NOTE | 2022-08-10 12:26 | Surgery Progress Note ---
Date of Service August 10, 2022 Assessment & Plan (1) Abdominal pain, acute: Plan: POD # 1 s/p laparoscopic cholecystectomy avss postop pain mild and controlled no n,v t.bili normalized, LFTS improving Plan: Okay from surgical standpoint for discharge discharge instructions reviewed follow-up surgery office in 1-2 weeks 1 week off from school/work, note written (2) Cholelithiasis: Plan: see above Plan Dr. Fernandez has seen and examined pt, agrees with above. Admission and Anticipated Discharge Date Admission Date: August 09, 2022 Subjective feeling better, preoperative pain resolved has not required any pain medication today tolerated clear liquids, hungry ambulating and urinating without difficulty no chest pain or shortness of breath Physical Exam Constitutional: WD/WN, vitals as above no acute distress and not ill appearing Neck: normal visual inspection and trachea midline Respiratory: normal respiratory effort; no respiratory distress, no labored breathing and no retractions Gastrointestinal (Abdomen): Inspection/Auscultation: abdomen normal to inspection and + abdominal surgical incision (covered with dressings, dried blood on umbilical dressing); abdomen not distended Percussion/Palpation: + abdomen tender (at incision sites, appropriate postop) and abdomen soft; no guarding and abdomen not rigid Skin: no rashes, warm and dry Psychiatric: Orientation: alert and oriented x 3 Results & Data Vital Signs (Past 12 Hours) Vital Signs Temp Pulse Pulse Resp BP Pulse Ox O2 Del Method 08/10/22 07:26 37.0 C 79 16 105/70 95 Room Air 08/10/22 03:57 37.1 C 78 15 106/77 95 Room Air Laboratory Results 08/10/22 08/10/22 08/09/22 Range/Units 05:48 05:48 Unknown WBC 5.50 (4.8-10.8) K/ul RBC 4.18 L (4.20-5.40) M/uL Hgb 12.1 (12.0-16.0) g/dl Hct 36.1 L (37.0-47.0) % MCV 86.4 (80.0-100.0) fL MCH 28.9 (25.0-34.0) pg MCHC 33.5 (32.0-36.0) g/dL RDW Std Deviation 40.6 (36.4-46.3) fL RDW Coeff of Carmen 13.0 (11.5-14.5) % Plt Count 253 (130-400) K/uL MPV 10.2 (9.4-12.4) fL Immature Gran % (Auto) 0.2 % Neut % (Auto) 69.1 % Lymph % (Auto) 23.6 % Menard % (Auto) 6.9 % Eos % (Auto) 0.0 % Baso % (Auto) 0.2 % Neut # (Auto) 3.80 (1.40-6.50) K/uL Lymph # (Auto) 1.30 (1.2-3.4) K/uL Menard # (Auto) 0.38 (0.11-0.59) K/uL Eos # (Auto) 0.00 (0-0.50) K/uL Baso # (Auto) 0.01 (0-0.2) K/uL Immature Gran # (Auto) 0.01 (0.01-0.20) K/uL Sodium 139 (136-145) mmol/L Potassium 4.2 (3.5-5.1) mmol/L Chloride 108 H (98-107) mmol/L Carbon Dioxide 27 (21-32) mmol/L Anion Gap 4 (3-11) BUN 4 L (6-23) mg/dl Creatinine 0.64 (0.6-1.2) mg/dl Est Cr Clr Drug Dosing 126.2 ml/min Est GFR ( Amer) 147.8 ml/min Est GFR (Non-Af Amer) 127.6 ml/min BUN/Creatinine Ratio 6.3 L (10-20) Glucose 108 H (70-99(Fasting)) mg/dl Calcium 8.7 (8.5-10.1) mg/dl Total Bilirubin 0.6 D (0.2-1.0) mg/dl AST 103 H (13-39) U/L ALT 210 H (7-52) U/L Alkaline Phosphatase 83 (34-104) U/L Total Protein 5.9 L (6.0-8.3) gm/dl Albumin 3.4 (3.4-5.0) gm/dl Globulin 2.5 (2.5-4.0) gm/dl Albumin/Globulin Ratio 1.4 (0.9-2) Urine Opiates Screen (Neg) Ur Methadone, Qual (Neg) Urine Barbiturates (Neg) Ur Phencyclidine (PCP) (Neg) U Amphetamin/Meth Scrn (Neg) MDMA (Ecstasy) Screen (Neg) U Benzodiazepines Scrn (Neg) Ur Cocaine Metabolite (Neg) U Marijuana (THC) Screen (Neg) U Marijuana THC Carboxy Pending Drug Screen Comment Pending 08/09/22 Range/Units Unknown WBC (4.8-10.8) K/ul RBC (4.20-5.40) M/uL Hgb (12.0-16.0) g/dl Hct (37.0-47.0) % MCV (80.0-100.0) fL MCH (25.0-34.0) pg MCHC (32.0-36.0) g/dL RDW Std Deviation (36.4-46.3) fL RDW Coeff of Carmen (11.5-14.5) % Plt Count (130-400) K/uL MPV (9.4-12.4) fL Immature Gran % (Auto) % Neut % (Auto) % Lymph % (Auto) % Menard % (Auto) % Eos % (Auto) % Baso % (Auto) % Neut # (Auto) (1.40-6.50) K/uL Lymph # (Auto) (1.2-3.4) K/uL Menard # (Auto) (0.11-0.59) K/uL Eos # (Auto) (0-0.50) K/uL Baso # (Auto) (0-0.2) K/uL Immature Gran # (Auto) (0.01-0.20) K/uL Sodium (136-145) mmol/L Potassium (3.5-5.1) mmol/L Chloride (98-107) mmol/L Carbon Dioxide (21-32) mmol/L Anion Gap (3-11) BUN (6-23) mg/dl Creatinine (0.6-1.2) mg/dl Est Cr Clr Drug Dosing ml/min Est GFR ( Amer) ml/min Est GFR (Non-Af Amer) ml/min BUN/Creatinine Ratio (10-20) Glucose (70-99(Fasting)) mg/dl Calcium (8.5-10.1) mg/dl Total Bilirubin (0.2-1.0) mg/dl AST (13-39) U/L ALT (7-52) U/L Alkaline Phosphatase (34-104) U/L Total Protein (6.0-8.3) gm/dl Albumin (3.4-5.0) gm/dl Globulin (2.5-4.0) gm/dl Albumin/Globulin Ratio (0.9-2) Urine Opiates Screen Neg (Neg) Ur Methadone, Qual Neg (Neg) Urine Barbiturates Neg (Neg) Ur Phencyclidine (PCP) Neg (Neg) U Amphetamin/Meth Scrn Neg (Neg) MDMA (Ecstasy) Screen Neg (Neg) U Benzodiazepines Scrn Neg (Neg) Ur Cocaine Metabolite Neg (Neg) U Marijuana (THC) Screen Pos H (Neg) U Marijuana THC Carboxy Drug Screen Comment (2) Cholelithiasis Cholelithiasis location: other site
--- NOTE | 2022-08-10 15:05 | Discharge Summary ---
Date of Service August 10, 2022 Admission HPI Per Admitting Provider Patient is a 21-year-old female with no significant past medical history presents to the ED for the complaint of right upper quadrant pain. She reports that this has been going on for the past 3 to 4 days and has progressively been getting worse to today bringing her pain up to a 7 out of 10 after eating dinner tonight. She has never had anything like this happen to her before. She is not having any nausea or vomiting however, she does note that she is having some decreased appetite. She has not had a good bowel movement in 3 to 4 days since the symptoms have started. Denies any alcohol consumption. Of note she did travel to [facility] in April. She is not a [place] born citizen so unsure of hepatitis B vaccination status. Reports that she is not sexually active. Otherwise denies shortness of breath, headache, vomiting, chest pain, or yellowing of skin. No previous abdominal surgeries. No other complaints this time. ED course:Patient was brought back and had lab work drawn which had shown wander vated total bilirubin at 1.7, elevated AST, ALT, and ALT at 683, 397, and 109 respectively. She had a right upper quadrant ultrasound which did reveal gallstones without acute cholecystitis or choledocholithiasis. Common bile duct does not show any stones or dilation. Hospitalist service was then consulted for admission. Admission Exam Per Admitting Provider Constitutional: WD/WN, vitals as above Eyes: + anicteric sclerae Neck: trachea midline, no thyromegaly Respiratory: normal respiratory effort, lungs clear to auscultation Cardiovascular: RRR, no murmur, no edema Gastrointestinal (Abdomen): Inspection/Auscultation: abdomen normal to inspection and normal bowel sounds Percussion/Palpation: + abdomen tender (RUQ, negative skinner sign), abdomen soft and normal to percussion Head/Neck/Chest: normocephalic and head atraumatic Skin: no rashes, warm and dry Neurologic: moves all extremities Psychiatric: A+Ox3, euthymic affect Principal Diagnosis cholelithiasis transaminitis Discharge Exam Constitutional: well-appearing, no acute distress HEENT: NCAT, no conjunctival injection CV: regular rhythm, no murmur appreciated, extremities well-perfused, no LE edema Resp: CTABL, no wheezes/rales/rhonchi appreciated, no increased work of breathing GI: soft, nondistended, +tender over incisions, wounds dressed with minimal serosanguineous strike through, no erythema or purulent discharge MSK: no gross deformities appreciated Skin: warm, dry, no rash appreciated Neuro: alert, oriented, no focal neurologic deficit appreciated Discharge Data Allergies Allergy/AdvReac Type Severity Reaction Status Date / Time No Known Allergies Allergy Unverified 08/09/22 04:59 Consultations 08/09/22 03:27 ED Decision to Admit Stat 08/09/22 05:55 Consult General Surgery Routine "pt is a 21 year-old female who was admitted to hospital for RUQ pain and cholelithiasis, IMP: acute cholecystitis, cholelithiasis, plan, base on pt's H/P, labs and U/S study finding, I recommend to do laparoscopic cholecystectomy, possible open or cholangiogram, D/W benefits, risks and alternatives of the surgery, the risks- infection, bleeding, injury other organs, bile leak, incisional hernia, may need ERCP if T bilirubin go up post-op, pt understood, she agreed with surgery, she signed informed consent, I answered all questions, pre-op iv antibiotic" Procedures Performed Operation Date: 08/09/22 13:00 Actual Procedures p Laparoscopic Cholecystectomy(Not Applicable) - Clementina Fernandez MD Ordered Studies Gallbladder Ultrasound 08/09/22 01:00 Exam(s): US GALLBLADDER EXAM: US Abdomen Limited, Gallbladder CLINICAL HISTORY: Reason for exam: ruq pain. TECHNIQUE: Real-time ultrasound of the right upper quadrant with image documentation. COMPARISON: No relevant prior studies available. FINDINGS: Gallbladder: There is cholelithiasis. Common bile duct: The common bile duct measures 0.2 cm. No stones. No dilation. Pancreas: Unremarkable as visualized. IMPRESSION: Cholelithiasis without secondary signs of acute cholecystitis. No evidence for choledocholithiasis. 08/10/22 08/10/22 Range/Units 05:48 05:48 WBC 5.50 (4.8-10.8) K/ul RBC 4.18 L (4.20-5.40) M/uL Hgb 12.1 (12.0-16.0) g/dl Hct 36.1 L (37.0-47.0) % MCV 86.4 (80.0-100.0) fL MCH 28.9 (25.0-34.0) pg MCHC 33.5 (32.0-36.0) g/dL RDW Std Deviation 40.6 (36.4-46.3) fL RDW Coeff of Carmen 13.0 (11.5-14.5) % Plt Count 253 (130-400) K/uL MPV 10.2 (9.4-12.4) fL Immature Gran % (Auto) 0.2 % Neut % (Auto) 69.1 % Lymph % (Auto) 23.6 % Forrest % (Auto) 6.9 % Eos % (Auto) 0.0 % Baso % (Auto) 0.2 % Neut # (Auto) 3.80 (1.40-6.50) K/uL Lymph # (Auto) 1.30 (1.2-3.4) K/uL Forrest # (Auto) 0.38 (0.11-0.59) K/uL Eos # (Auto) 0.00 (0-0.50) K/uL Baso # (Auto) 0.01 (0-0.2) K/uL Immature Gran # (Auto) 0.01 (0.01-0.20) K/uL Sodium 139 (136-145) mmol/L Potassium 4.2 (3.5-5.1) mmol/L Chloride 108 H (98-107) mmol/L Carbon Dioxide 27 (21-32) mmol/L Anion Gap 4 (3-11) BUN 4 L (6-23) mg/dl Creatinine 0.64 (0.6-1.2) mg/dl Est Cr Clr Drug Dosing 126.2 ml/min Est GFR ( Amer) 147.8 ml/min Est GFR (Non-Af Amer) 127.6 ml/min BUN/Creatinine Ratio 6.3 L (10-20) Glucose 108 H (70-99(Fasting)) mg/dl Calcium 8.7 (8.5-10.1) mg/dl Total Bilirubin 0.6 D (0.2-1.0) mg/dl AST 103 H (13-39) U/L ALT 210 H (7-52) U/L Alkaline Phosphatase 83 (34-104) U/L Total Protein 5.9 L (6.0-8.3) gm/dl Albumin 3.4 (3.4-5.0) gm/dl Globulin 2.5 (2.5-4.0) gm/dl Albumin/Globulin Ratio 1.4 (0.9-2) Hospital Course (1) RUQ pain: Ms. Lopez is a 21 y/o female with no significant PMHx presented to the ED with RUQ pain found to have cholelithiasis with cholecystitis, s/p CCY on 08/09/22 #Cholecystitis w/ Cholelithiasis Found to have cholecystitis intraoperatively. Received perioperative ABX. LFTs w/ hepatocellular pattern and improved PTD - see below. Liver US with cholelithiasis. Pain well controlled, advanced diet and tolerated prior to discharge #Transaminitis Though initially with hepatocellular pattern, the fact it improved prior to discharge and post CCY is more supportive that it was d/t cholecystitis. UDS +cannabis, salicylate, acetaminophen levels WNL. AST 103 / ALT 210 / ALP 83 / TBii 0.6. Recommend checking CMP in a week. Hepatitis serologies pending at d/c - will need f/u (2) Cholelithiasis: (3) Elevated LFTs: Total Time Total Time Spent Total Time Spent (In Minutes): 30 Discharge Plan Discharge Items Patient Disposition: Home - Self-Care Reason For Visit: RUQ PAIN Discharge Diagnosis: cholelithiasis Condition on Discharge: Good Activity: Per Instructions section Non-emergency contact: Primary Care Provider and Surgeon Call non-emergency contact if: your pain is not controlled and your temperature is above 101 Follow-up/Referrals: [facility] [address] [Primary Care Provider] - Clementina Fernandez MD [Physician] - 08/18/22 11:30 am Diet: Regular Ambulatory Orders: Comprehensive Metabolic Panel (Routine) Timeframe: 5 Days Location: Determined by Patient Ordered By: Evert Grimm Attending Provider Instructions: You were seen at [facility] for inflammation and infection of the gallbladder. You underwent surgery to have your gallbladder removed. You tolerated this well. You were also noted to have elevated liver numbers while here. We think this was due to your gallbladder, given the improvement we saw after your gallbladder was removed. Please have your family doctor recheck these numbers within the next week. We are still awaiting your hepatitis serologies at time of discharge. [employer] [facility] [employer] Provider Instructions: Post-Surgical ~Discharge Instructions Activity Recommendations: - lifting limitation: (20 pounds for 4 weeks), - exercise/sex/sports limit: (nonstrenuous for 2 weeks), - driving or machine use limit: (none for 1 week or until pain free and no longer taking narcotic pain medication), - Shower/bathe limit: (september shower beginning Wednesday, no submerging underwater for 2 weeks) Diet: - Resume previous diet SPECIAL CARE INSTRUCTIONS: - May shower on Wednesday, sponge bath and wash hair in meantime. On Wednesday, remove outer dressings and shower. Let water run over area and pat dry. - Leave steri strips on for one week. - Call the surgeon's office with any questions or concerns - - (ex. temperature higher than 101 degrees F, excessive bleeding or pain). MEDICATIONS: - Resume previous medications unless instructed otherwise by your surgeon. - May alternate extra strength Tylenol and Ibuprofen as needed for mild to moderate pain -650 mg Tylenol every 6 hours as needed - Ibuprofen 600 mg every 6 hours as needed and take with food - Percocet 1 every 6 hours, as needed for moderate to severe pain - Daily stool softener recommended (Colace) while taking narcotic pain medication to prevent constipation or straining. FOLLOW UP VISIT: - If not already scheduled, please call the office to schedule a one- two week follow-up appointment. Office number Pending Studies at Discharge: Yes (gallbladder pathology) Stand-Alone Forms: [facility], Work/School Release, Smoking Cessation Medications and DC Order Prescriptions: New oxycodone-acetaminophen [Percocet] 5-325 mg tablet 1 tab PO Q6H PRN (Reason: pain) Qty: 5 0RF Discharge Orders: Discharge Order (Routine); Ordered 08/10/22 Ordered By: Evert Lozada Admission Data Admit Date/Time: 08/09/22 04:16 Attending Provider: Saira Michaels Admit Provider: Jasen Milligan Primary Care Provider: [facility] Other Providers: Kendrick Beaulieu ; Clementina Fernandez ; Evert Gonzalez Other Interventions: Discharge Summary Assessment (RN) Last Done: 08/10/22 14:00
[2022-08-12 09:17] LABS: Marijuana Quant, GCMS Urine 346 ng/mL (<5)
== END 2022-08-10 16:03 | disposition home or self-care (01) | DRG 419 ==
LOC: ED 00:41 → 3W 04:16 → SUATTDRO 04:16 → 3W 05:40